=== PATIENT | male | born 1980 | race Caucasian/White ===

== ENCOUNTER 2017-08-03 01:17 | Emergency (ER) | payer SELFPAY ==
[2017-08-03 01:39] VITALS: BP 129/83; PULSE 77; RESP 16; TEMP 36.7; O2SAT 96; BMI 31.0
[2017-08-03 01:48] VITALS: PULSE 77
--- NOTE | 2017-08-03 02:01 | ED.UPPEXIN ---
HPI - Extremity Injury (Upper) General Chief Complaint: Extremity Injury, Upper Stated Complaint: ARM PAIN BOTH SIDES CARPAL TUNNEL Time Seen by Provider: 08/03/17 01:42 History of Present Illness HPI narrative: HPI 36-year-old male with bilateral carpal tunnel syndrome presents with spasming bilateral carpal pain that radiates towards his elbows. 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 Patient has been taking ibuprofen, acetaminophen, and gabapentin with inadequate relief of pain. Patient is using wrist braces at night. ROS with no recent constitutional symptoms. Exam Gen: Pleasant, nontoxic-appearing, resting comfortably. HEENT: NC, AT, PEERL, EOMI. Resp: Unlabored respirations with a normal work of breathing. Card: Extremities warm and well perfused. GI: Non-distended. : Deferred MSK: bilateral upper extremities visually normal, all fingers warm and well perfused, 5/5 thermal molder strength bilaterally, full functional range of motion of wrist, elbows, and shoulders bilaterally. Positive Tinnel's sign bilaterally. Neuro: AO x 3, no facial asymmetry, vision and hearing WNL. Heme/Lymph: Deferred Skin: Normal color with no visible lesions (other than noted above). Psych: Mood and affect appropriate. MDM Previous chart, nursing note, and vitals reviewed. A: 36-year-old male with bilateral carpal tunnel syndrome presents with spasming bilateral carpal pain that radiates towards his elbows. DDx & Evaluation: patient carpal tunnel syndrome, keeping an exacerbation. Exam without evidence of CMS deficit, infection, or alternate process. [facility] queried, no evidence of prior prescriptions. [place] discharge pack provided, patient instructed to reduce physical activity. Impression: carpal tunnel syndrome. (please reference below for remainder of encounter information) Related Data Home Medications Medication Instructions Recorded Confirmed Ultram 08/03/17 Allergies Allergy/AdvReac Type Severity Reaction Status Date / Time amoxicillin Allergy Rash Verified 08/03/17 01:45 tramadol Allergy Swelling Verified 08/03/17 01:46 of Lip/T[facility]ue[facility] Social History Smoking Status: Never smoker Exam Initial Vital Signs Initial Vital Signs: Vital Signs Temperature 98.1 F 08/03/17 01:39 Pulse Rate 77 08/03/17 01:39 Respiratory Rate 16 08/03/17 01:39 Blood Pressure 129/83 H 08/03/17 01:39 Pulse Oximetry 96 08/03/17 01:39 Course Vital Signs - 8 hr 08/03/17 01:39 08/03/17 01:48 Temperature 98.1 F Pulse Rate 77 Pulse Rate [Bilateral Radial] 77 Respiratory Rate 16 Blood Pressure 129/83 H Pulse Oximetry 96 Discharge Plan Departure Prescriptions: No Action Ultram RF: 0
[2017-08-03] MEDS: HYDROCODONE/ACET 5/325 PREPACK 1 BOTTLE MISC (02:14)
== END 2017-08-03 02:18 | disposition home or self-care (01) ==
PROVIDERS: Emergency Provider Emergency Medicine
DX: G56.00 Carpal tunnel syndrome, unspecified upper limb (principal)
CPT/HCPCS: 99282; 99283